=== PATIENT | female | born 1965 ===

== ENCOUNTER 2016-12-15 18:40 | Emergency (ER) | payer SELFPAY ==
[2016-12-15 19:28] VITALS: BP 186/104
[2016-12-15 20:03] LABS: Basophils % (Auto) 0.8 % (0.0-1.8); Hematocrit 37.5 % (30.3-42.9); Mean Corpuscular HGB Conc 32 % (30-34); Mean Corpuscular Hemoglobin 28 pg (28-32); Mean Corpuscular Volume 86 fl (79-97); Platelet Count 295 K/mm3 (140-440); Red Blood Count 4.35 M/mm3 (3.65-5.03); Red Cell Distribution Width 15.7 % (13.2-15.2); White Blood Count 8.7 K/mm3 (4.5-11.0)
[2016-12-15 20:14] LABS: INR 0.9 (0.87-1.13)
[2016-12-15 20:16] LABS: Anion Gap 19 mmol/L; Blood Urea Nitrogen 12 mg/dL (7-17); Calcium 9.4 mg/dL (8.4-10.2); Carbon Dioxide 23 mmol/L (22-30); Chloride 97.3 mmol/L (98-107); Glucose 134 mg/dL (65-100); Sodium 135 mmol/L (137-145)
== END 2016-12-15 21:25 | disposition left against medical advice (07) ==
LOC: ED 18:40
DX: R06.02 Shortness of breath (principal); Z53.21 Procedure and treatment not carried out due to patient leaving prior to being seen by health care provider
CPT/HCPCS: 36415; 80048; 83880; 84484; 85025; 85379; 85610; 93005; 93010